=== PATIENT | female | born 1965 | race African-American/Black ===

== ENCOUNTER 2022-08-30 15:17 | Emergency (ER) | payer OTHER ==
[~2022-08-30] VITALS: Ht 157.5 cm; Wt 66.2 kg
[2022-08-30 15:56] VITALS: BP 136/62; TEMP 99
[2022-08-30 16:23] LABS: PLATELET COUNT 367 K/uL (152-353)
[2022-08-30 16:28] LABS: POTASSIUM 4.1 mmol/L (3.6-5.2)
== END 2022-08-30 20:28 | disposition home or self-care (01) ==
LOC: ED 15:17
PROVIDERS: Emergency Medicine
DX: D64.9 Anemia, unspecified (principal); R42 Dizziness and giddiness
CPT/HCPCS: 80053; 81002; 84484; 85027; 93005; 99283